=== PATIENT | female | born 1955 | race Caucasian/White ===

== ENCOUNTER 2022-12-01 16:36 | Emergency (ER) | payer MEDICARE ==
[~2022-12-01] VITALS: Ht 162.6 cm; Wt 90.0 kg
--- NOTE | 2022-12-01 16:58 | NUR ---
pt arrived to the er with an officer. the pt and officer went into room 17 for a recorded report. pt was asked if she had an emergency concerns and she denied. will triage the patient once interview is done since it had already been started.
[2022-12-01 17:24] VITALS: BP 182/87
[2022-12-01] MEDS ORDERED: CYCL-1 PO (18:23)
[2022-12-01] MEDS ORDERED: LIDO-12 TOP (18:23)
[2022-12-01] MEDS ORDERED: IBUP-1986 PO (18:23)
[2022-12-01] MEDS ORDERED: ketorolac trometh inj. 60 MG/2 ML VIAL IM ONE (18:25)
== END 2022-12-01 18:37 | disposition home or self-care (01) ==
LOC: ER 16:36
DX: S16.1XXA Strain of muscle, fascia and tendon at neck level, initial encounter (principal); R51.9 Headache, unspecified; E03.9 Hypothyroidism, unspecified; Z91.040 Latex allergy status; Y04.8XXA Assault by other bodily force, initial encounter; Y93.89 Activity, other specified; Y92.89 Other specified places as the place of occurrence of the external cause; Y99.8 Other external cause status
CPT/HCPCS: 96372; 99283; J1885